=== PATIENT | male | born 1950 | race Caucasian/White ===

== ENCOUNTER → 2024-09-23 | Outpatient (REF) | payer MEDICARE ==
[~2024-09-23] MED LIST: ASPIR 8181 MG PO; CRESTOR10 MG PO; CYCLOBENZAPRINE5 MG PO; ETODOLAC500 MG PO; HYDROCHLOROTHIA25 MG PO; LOSARTAN-HCTZ1 EAC1 PO; METOPROLOL SUCC25 MG PO; METOPROLOL SUCC50 MG PO; MICARDIS80 MG PO; NORVASC10 MG PO; PLAVIX75 MG PO
[2024-09-23 09:11] LABS: BASOPHILS % 0.4 % (0.0-1.0); EOSINOPHILS % 1.5 % (0.0-6.0); LYMPHOCYTES % 44.4 % (18.0-39.1); MONOCYTES % 9.6 % (4.4-11.3); NEUTROPHILS % 43.7 % (38.7-80.0); RED CELL DISTRIBUTION WIDTH 13.6 % (11.7-14.4)
== END ==
LOC: LAB 08:00 → EDSTATUS 09-29 09:30
PROVIDERS: ATTEND Internal Medicine Gastroenterology
DX: Z01.810 Encounter for preprocedural cardiovascular examination (principal); Z01.812 Encounter for preprocedural laboratory examination; Z86.0100 Personal history of colon polyps, unspecified; I10 Essential (primary) hypertension; E78.00 Pure hypercholesterolemia, unspecified
CPT/HCPCS: 36415; 85025; 93005

== ENCOUNTER → 2024-11-18 | Day surgery (SDC) | payer MEDICARE ==
[~2024-11-18] MED LIST changes: +HYDROCODONE PO; +LIDOCAINE HCL 2% LOCAL INJ 5 ML SDV VIAL INJ ONE; +MULTI-VITAMIN1 EACH PO; +PROPOFOL IV EMULSION 10 MG/ML 20 ML VIAL ONE
[2024-11-18] MEDS: LACTATED RINGER'S 1,000 ML ONE (10:08)
[2024-11-18 10:39] LABS: BASOPHILS % 0.4 % (0.0-1.0); EOSINOPHILS % 0.4 % (0.0-6.0); LYMPHOCYTES % 23.8 % (18.0-39.1); MONOCYTES % 7.9 % (4.4-11.3); NEUTROPHILS % 66.6 % (38.7-80.0); RED CELL DISTRIBUTION WIDTH 13.3 % (11.7-14.4)
[2024-11-18 13:11] VITALS: TEMP 98.4
[2024-11-18 13:40] VITALS: BP 130/94; PULSE 60; RESP 16; O2SAT 98
== END | disposition home or self-care (01) ==
LOC: OR 09:24
PROVIDERS: ATTEND Internal Medicine Gastroenterology
DX: R19.5 Other fecal abnormalities (principal); D12.4 Benign neoplasm of descending colon; D12.5 Benign neoplasm of sigmoid colon; K57.30 Diverticulosis of large intestine without perforation or abscess without bleeding; K64.8 Other hemorrhoids; I25.10 Atherosclerotic heart disease of native coronary artery without angina pectoris; I25.2 Old myocardial infarction; I11.0 Hypertensive heart disease with heart failure; I50.9 Heart failure, unspecified; E78.5 Hyperlipidemia, unspecified; G89.29 Other chronic pain; F17.220 Nicotine dependence, chewing tobacco, uncomplicated; Z88.6 Allergy status to analgesic agent; Z79.02 Long term (current) use of antithrombotics/antiplatelets; Z79.899 Other long term (current) drug therapy; Z95.5 Presence of coronary angioplasty implant and graft
CPT/HCPCS: 36415; 45385; 85025; J2003; J2704; J7121; 45378